=== PATIENT | male | born 1990 | race Caucasian/White ===

== ENCOUNTER 2020-02-22 15:24 | Emergency (ER) | payer OTHER, SELFPAY ==
[2020-02-22 15:50] VITALS: BP 145/75; PULSE 87; RESP 19; TEMP 36.6; O2SAT 99; BMI 32.5
--- NOTE | 2020-02-22 15:53 | XR_ITS ---
PROCEDURE: XR RIBS LT MIN 3V W CXR1V Referring Doctor: Sundar Wolf Patient Age:29Y CLINICAL INDICATION: PAIN Fell against car door hearing popping noise. Left the chest pain pain anterior chest below nipple COMPARISON: No exams were available for comparison FINDINGS: A frontal view of the chest shows lungs to be clear with no pneumothorax.. No active disease in the chest Multiple views of the left ribs ribs were obtained. No acute findings. No fracture. I would note that in this relatively younger patient the cartilage portion of rib begins at approximately the mid nipple line. The calcified left ends appear intact on today's views IMPRESSION: No acute findings. ; no rib fracture evident; Lungs clear no active disease Dictated by: David Braun MD 02/22/2020 16:52 David Braun MD in [place] 02/22/2020 16:52
--- NOTE | 2020-02-22 16:50 | HMH.EDUTC ---
[facility] [place]: Chest wall contusion Qualifiers: Encounter type: initial encounter Laterality: left Qualified Code(s): S20.212A - Contusion of left front wall of thorax, initial encounter Disposition: Home, Self-Care Condition on Discharge: Good Instructions: DI for Rib Contusion Additional Instructions: Rest and don't be doing any heavy lifting of straining for the next several day. Take ibuprofen for pain. I sent in a prescription to your pharmacy. Follow up with your primary care physician. If you continue to have worsening symptoms, you may need the x-ray to be repeated or a ct scan. Sometimes fractures show up better several days after they happen. GO TO THE ER FOR ANY WORSENING SYMPTOMS Prescriptions: Ibuprofen [Ibuprofen 800mg Tablet] 800 mg PO Q8HP PRN #30 tab PRN Reason: Moderate Pain Transmission Status: Received by [facility] Referrals: PCP,No [Primary Care Provider] - Forms: Work/School Release Time of Disposition: 16:54 Medical Decision Making - Medical Records Medical records reviewed: No: I reviewed the patient's medical records. - Rodrick Inquiry Pt receiving controlled substance: No Vital Signs: 02/22/20 15:50 02/22/20 16:59 Temperature 97.8 F 97.8 F Temperature Source Oral Pulse Rate 87 Pulse Rate [Right Brachial] 87 Respiratory Rate 19 19 Blood Pressure 145/75 H Blood Pressure [Right Arm] 145/75 H Blood Pressure Mean [Right Arm] 98 Blood Pressure Source [Right Arm] Automatic Cuff Blood Pressure Position [Right Arm] Sitting 02 Sat by Pulse Oximetry 99 Oxygen Delivery Method Room Air - Radiology Data #1 Image(s): Chest Image Reviewed: Yes I reviewed the patient's radiology image, Yes I have reviewed radiologist's interpretation Preliminary Findings: Normal/NAD PROCEDURE: XR RIBS LT MIN 3V W CXR1V Referring Doctor: Sundar Wolf Patient Age:29Y CLINICAL INDICATION: PAIN Fell against car door hearing popping noise. Left the chest pain pain anterior chest below nipple COMPARISON: No exams were available for comparison FINDINGS: A frontal view of the chest shows lungs to be clear with no pneumothorax.. No active disease in the chest Multiple views of the left ribs ribs were obtained. No acute findings. No fracture. I would note that in this relatively younger patient the cartilage portion of rib begins at approximately the mid nipple line. The calcified left ends appear intact on today's views IMPRESSION: No acute findings. ; no rib fracture evident; Lungs clear no active disease Dictated by: David Braun MD 02/22/2020 16:52 David Braun MD in [place] 02/22/2020 16:52 [facility] [place] - General Stated complaint: AO 02/17 @0430 fall rib pain Time Seen by Provider: 02/22/20 16:00 Mode of Arrival: Ambulatory Source of Information: Patient Limitations: No Limitations Description of Symptoms (Recalled from Triage Doc. by RN): PATIENT C/O LEFT RIB PAIN AFTER FALLING INTO A CAR FRIDAY MORNING HEENT Symptoms (Recalled from RN notes): No Resp Symptoms (Recalled from RN notes): No Skin Symptoms (Recalled from RN notes): No MS Symptoms (Recalled from RN notes): Yes Functional Status (Recalled from RN notes): WNL - History of Present Illness Provider Complaint: He states that he slipped on ice while he was opening his car door yesteday. When this happened he fell into the car. He hit the side of his car with the left side of his chest. Since then he has had left sided chest wall pain and tenderness. - Related Data Previous Rx's Medication Instructions Recorded Ibuprofen [Ibuprofen 800mg 800 mg PO Q8HP PRN #30 tab 02/22/20 Tablet] Allergies Allergy/AdvReac Type Severity Reaction Status Date / Time aloe vera Allergy Verified 02/22/20 16:10 cefaclor [From Ceclor] Allergy Verified 02/22/20 16:10 - Worker's Comp Is this a Worker's Comp case?: No [facility] Histor
[2020-02-22 16:59] VITALS: BP 145/75; PULSE 87; RESP 19; TEMP 36.6; O2SAT 99
== END 2020-02-22 17:06 | disposition home or self-care (01) ==
PROVIDERS: Emergency Provider Nurse Practitioner Family
DX: S20.212A Contusion of left front wall of thorax, initial encounter (principal); W00.0XXA Fall on same level due to ice and snow, initial encounter; Y92.89 Other specified places as the place of occurrence of the external cause
CPT/HCPCS: 71101; 99201

== ENCOUNTER → 2020-03-02 16:15 | Outpatient (CLI) | payer OTHER, SELFPAY ==
--- NOTE | 2020-03-02 16:20 | XR_ITS ---
PROCEDURE: XR SHOULDER LT MIN 2V CLINICAL INDICATION: PAIN IN LT SHOULDER COMPARISON: No exams were available for comparison FINDINGS: No fracture or dislocation. No lytic or blastic change. There is normal mineralization. The joint spaces are well-preserved. No significant degenerative/arthritic changes. No erosive changes evident. Other findings:None. IMPRESSION: Negative left shoulder Dictated by: Mitch Stewart MD 03/02/2020 16:49 Mitch Stewart MD in [place] 03/02/2020 16:49
== END ==
PROVIDERS: PCP Nurse Practitioner; Visit Provider Nurse Practitioner
DX: M25.512 Pain in left shoulder (principal)
CPT/HCPCS: 73030

== ENCOUNTER 2020-04-04 13:00 | Outpatient (RCR) | payer OTHER, SELFPAY | END 2020-04-20 08:29 | disposition home or self-care (01) | LOC: PT.CARL 13:00 | PROVIDERS: PCP Nurse Practitioner; Visit Provider Nurse Practitioner | DX: M25.512 Pain in left shoulder (principal) | CPT/HCPCS: 97010; 97014; 97110; 97163; G0283 ==

== ENCOUNTER → 2020-12-07 18:17 | Outpatient (CLI) | payer OTHER, SELFPAY ==
[2020-12-07 18:28] LABS: Basophils # 0.1 K/mm3 (0-0.2); Basophils % 1.6 % (0.1-2.0); Eosinophils # 0.1 K/mm3 (0.0-0.4); Eosinophils % 1.7 % (0.1-12.0); Hematocrit 42.1 % (42.0-52.0); Lymphocytes # 1.6 K/mm3 (0.7-4.5); Lymphocytes % 29.1 % (10-50); Mean Corpuscular HGB Conc 33.4 g/dL (31.8-35.4); Mean Corpuscular Hemoglobin 30.9 pg (27.0-31.2); Mean Corpuscular Volume 92.7 fl (80-94); Mean Platelet Volume 9.5 fl (7.4-10.4); Monocytes # 0.4 K/mm3 (0.1-1.0); Monocytes % 6.3 % (1.7-9.3); Neutrophils # 3.4 K/mm3 (1.8-7.8); Neutrophils % 61.4 % (37.0-80.0); Platelet Count 200 K/mm3 (142-424); Red Blood Count 4.54 M/mm3 (4.60-6.20); White Blood Count 5.6 K/mm3 (4.8-10.8)
[2020-12-07 19:03] LABS: Hemoglobin A1C 6.1 % (4.0-6.0)
[2020-12-07 19:41] LABS: Alanine Aminotransferase 57 U/L (12-78); Albumin Level 3.8 g/dl (3.5-5.0); Albumin/Globulin Ratio 1.4 (1.1-1.8); Alkaline Phosphatase 62 U/L (38-126); Anion Gap 9.4 mEq/L (5-15); Aspartate Amino Transferase 36 U/L (17-59); Bilirubin,Total 0.7 mg/dl (0.2-1.3); Blood Urea Nitrogen 15 mg/dl (9-20); Calcium 8.6 mg/dl (8.4-10.2); Carbon Dioxide 28 mmol/L (22.0-30.0); Chloride 108 mmol/L (98-107); Chol/HDL Ratio 3.8 (1-3.5); Cholesterol 150 mg/dl (140-200); Estimated Glomerular Filt Rate 160 ml/min (>60); GFR (African American) 194 ML/MIN (>60); Globulin 2.7 g/dL (1.3-3.2); Glucose 89 mg/dl (74-100); HDL Cholesterol 40 mg/dl (40-60); Potassium 4.4 mmoL/L (3.5-5.1); Sodium 141 mmol/L (136-145); Total Protein,Serum 6.5 g/dl (6.3-8.2); Triglycerides 97 mg/dl (30-150); VLDL Cholesterol 19 mg/dL (0-40)
[2020-12-07 19:52] LABS: Direct LDL Cholesterol 100.17 mg/dL (100-129)
== END ==
PROVIDERS: Visit Provider Internal Medicine Adolescent Medicine
DX: R03.0 Elevated blood-pressure reading, without diagnosis of hypertension (principal); E66.9 Obesity, unspecified; Z68.35 Body mass index [BMI] 35.0-35.9, adult
CPT/HCPCS: 80053; 80061; 83036; 85025

== ENCOUNTER 2021-02-13 15:57 | Emergency (ER) | payer OTHER, SELFPAY ==
[2021-02-13 16:10] VITALS: BP 141/78; PULSE 80; RESP 20; TEMP 36.8; O2SAT 98; BMI 35.9
--- NOTE | 2021-02-13 17:02 | HMH.EDUTC ---
[facility] [place]: Otitis media Qualifiers: Otitis media type: unspecified Laterality: right Qualified Code(s): H66.91 - Otitis media, unspecified, right ear Disposition: Home, Self-Care Condition on Discharge: Good Instructions: Middle Ear Infection, Methylprednisolone, Azithromycin Additional Instructions: *Monitor Temp, Over the counter Motrin or Tylenol as directed/as needed Tylenol every 4 hours and Motrin every 6 hours (as long as your family doctor has told you that you can take it) for fever or pain. and straight to ER if unable to lower temp less than 101.0 after medication given *Warm salt water gargles may help to soothe the throat *Throat Lozenges *Warm fluids like tea with honey may help to soothe the throat *Sleep elevated *Humidifier/Vaporizer Take medication as prescribed Return if needed Straight to ER Follow up IMMEDIATELY for new or worsening symptoms or no Noticeable improvement over the next 48-72 hours. 911 for difficulty breathing or swallowing Prescriptions: methylPREDNISolone [Medrol 4mg tab] 4 mg PO DIRECTED #21 tab Transmission Status: Pending to [email or web address] Azithromycin [Z-Efe 250mg Tab] 250 mg PO DIRECTED #6 tab Transmission Status: Pending to [email or web address] Referrals: Kobe Moore MD [Primary Care Provider] - As needed Time of Disposition: 17:13 Medical Decision Making - Rodrick Inquiry Pt receiving controlled substance: No Rodrick was queried for this patient: No Vital Signs: 02/13/21 16:10 02/13/21 17:09 Temperature 98.3 F 98.3 F Temperature Source Oral Pulse Rate 80 Pulse Rate [Right Brachial] 80 Respiratory Rate 20 20 Blood Pressure 141/78 H Blood Pressure [Right Arm] 141/78 H Blood Pressure Mean [Right Arm] 99 Blood Pressure Source [Right Arm] Automatic Cuff Blood Pressure Position [Right Arm] Sitting 02 Sat by Pulse Oximetry 98 Oxygen Delivery Method Room Air [facility] [place] - General Stated complaint: right ear pain Time Seen by Provider: 02/13/21 17:03 Mode of Arrival: Ambulatory Source of Information: Patient Limitations: No Limitations Description of Symptoms (Recalled from Triage Doc. by RN): PATIENT C/O RIGHT EAR PAIN X 2 DAYS HEENT Symptoms (Recalled from RN notes): Yes Resp Symptoms (Recalled from RN notes): No Skin Symptoms (Recalled from RN notes): No MS Symptoms (Recalled from RN notes): No Functional Status (Recalled from RN notes): WNL - History of Present Illness Provider Complaint: Patient states that he has been having pain in his right ear for about 2 days State that he had ear infection about 3mths ago and felt like it did now State that he feels like his ears are full and has pressure so he came in to get checked - Related Data Home Medications Medication Instructions Recorded Confirmed Levocetirizine Dihydrochloride 10 mg PO DAILY 02/13/21 02/13/21 Metformin HCl [Metformin HCl ER] 500 mg PO BID 02/13/21 02/13/21 Previous Rx's Medication Instructions Recorded Azithromycin [Z-Efe 250mg Tab] 250 mg PO DIRECTED #6 tab 02/13/21 methylPREDNISolone [Medrol 4mg 4 mg PO DIRECTED #21 tab 02/13/21 tab] Allergies Allergy/AdvReac Type Severity Reaction Status Date / Time aloe vera Allergy Verified 02/22/20 16:10 cefaclor [From Ceclor] Allergy Verified 02/22/20 16:10 - Worker's Comp Is this a Worker's Comp case?: No H History - Hepatitis A Screen Drug use history?: No High risk sexual behaviors?: No History of sexually transmitted infection?: No Currently employed?: No Childcare worker?: No Do you have indoor plumbing?: Yes Do you have electricity?: Yes Attestation statement:: This patient has been screened for Hepatitis A risk factors. Medical History: Reports:: Diabetes Mellitus Type 2 Laterality Cases: Bilateral: Tonsillectomy - Social History Smoking Status: Current every day smoker Tobacco Type: cigarettes # Packs/Day (cigarettes):
[2021-02-13 17:09] VITALS: BP 141/78; PULSE 80; RESP 20; TEMP 36.8; O2SAT 98
== END 2021-02-13 17:20 | disposition home or self-care (01) ==
PROVIDERS: Emergency Provider Nurse Practitioner; PCP Internal Medicine Adolescent Medicine
DX: H66.91 Otitis media, unspecified, right ear (principal); E11.9 Type 2 diabetes mellitus without complications; Z79.84 Long term (current) use of oral hypoglycemic drugs
CPT/HCPCS: 99202; G0463

== ENCOUNTER → 2021-03-08 10:06 | Outpatient (CLI) | payer OTHER, SELFPAY ==
[2021-03-08 11:13] LABS: Hemoglobin A1C 4.4 % (4.0-6.0)
== END ==
PROVIDERS: PCP Internal Medicine Adolescent Medicine; Visit Provider Internal Medicine Adolescent Medicine
DX: R73.03 Prediabetes (principal)
CPT/HCPCS: 36415; 83036

== ENCOUNTER 2021-04-15 14:51 | Emergency (ER) | payer OTHER, SELFPAY ==
[2021-04-15 15:02] VITALS: BP 121/89; PULSE 90; RESP 16; TEMP 36.8; O2SAT 99; BMI 35.7
--- NOTE | 2021-04-15 15:07 | HMH.EDUTC ---
[facility] [place]: Sinusitis Qualifiers: Sinusitis location: unspecified location Chronicity: unspecified Qualified Code(s): J32.9 - Chronic sinusitis, unspecified Disposition: Home, Self-Care Condition on Discharge: Good Instructions: Sinusitis, DI for Sinusitis Additional Instructions: *Monitor Temp, Over the counter Motrin or Tylenol as directed/as needed Tylenol every 4 hours and Motrin every 6 hours (as long as your family doctor has told you that you can take it) for fever or pain. and straight to ER if unable to lower temp less than 101.0 after medication given *Warm salt water gargles may help to soothe the throat *Throat Lozenges *Warm fluids like tea with honey may help to soothe the throat *Sleep elevated *Humidifier/Vaporizer Take medication as prescribed Return if needed Follow up IMMEDIATELY for new or worsening symptoms or no Noticeable improvement over the next 48-72 hours. 911 for difficulty breathing or swallowing Prescriptions: predniSONE [Deltasone 10mg tablet] 10 mg PO BID 5 Days #10 tab Transmission Status: Pending to [facility] #[id number] Doxycycline Monohydrate [Doxycycline Harvey 100mg Tab] 100 mg PO BID 10 Days #20 tab Transmission Status: Pending to [facility] #[id number] Referrals: Sundar Azul MD [Primary Care Provider] - As needed Time of Disposition: 15:19 Medical Decision Making - Rodrick Inquiry Pt receiving controlled substance: No Rodrick was queried for this patient: No Vital Signs: 04/15/21 15:02 Temperature 98.2 F Temperature Source Oral Pulse Rate [Right Brachial] 90 Respiratory Rate 16 Blood Pressure [Right Arm] 121/89 Blood Pressure Mean [Right Arm] 99 Blood Pressure Source [Right Arm] Automatic Cuff Blood Pressure Position [Right Arm] Sitting 02 Sat by Pulse Oximetry 99 [facility] [place] - General Stated complaint: possible sinus infection Time Seen by Provider: 04/15/21 15:07 Description of Symptoms (Recalled from Triage Doc. by RN): PT STATES HE THINKS HE HAS A SINUS INFECTION. SAYS HE HAS ALOT OF SINUS PRESSURE UNDER AND BEHIND HIS EYE ALONG WITH BLOWING OUT DARK GREEN MUCOUS WHEN HE BLOWS HIS NOSE. HEENT Symptoms (Recalled from RN notes): Yes Resp Symptoms (Recalled from RN notes): No Skin Symptoms (Recalled from RN notes): No MS Symptoms (Recalled from RN notes): No Functional Status (Recalled from RN notes): WNL - History of Present Illness Provider Complaint: Patient states that he thinks he may have a sinus infection States that for about a week he has been having sinus pain and pressure behind his eyes States that he gets sinus infections often and felt it coming on last week and has continued to get worse - Related Data Home Medications Medication Instructions Recorded Confirmed Levocetirizine Dihydrochloride 10 mg PO DAILY 02/13/21 02/13/21 Metformin HCl [Metformin HCl ER] 500 mg PO BID 02/13/21 02/13/21 Previous Rx's Medication Instructions Recorded Azithromycin [Z-Efe 250mg Tab] 250 mg PO DIRECTED #6 tab 02/13/21 methylPREDNISolone [Medrol 4mg 4 mg PO DIRECTED #21 tab 02/13/21 tab] Doxycycline Monohydrate 100 mg PO BID 10 Days #20 tab 04/15/21 [Doxycycline Harvey 100mg Tab] predniSONE [Deltasone 10mg tablet] 10 mg PO BID 5 Days #10 tab 04/15/21 Allergies Allergy/AdvReac Type Severity Reaction Status Date / Time aloe vera Allergy Verified 02/22/20 16:10 cefaclor [From Ceclor] Allergy Verified 02/22/20 16:10 - Worker's Comp Is this a Worker's Comp case?: No [facility] History - Hepatitis A Screen Drug use history?: No High risk sexual behaviors?: No History of sexually transmitted infection?: No Currently employed?: No Childcare worker?: No Do you have indoor plumbing?: Yes Do you have electricity?: Yes Attestation statement:: This patient has been screened for Hepatitis A risk factors. I have reviewed the patient's past medical history: Yes Medical History: Jahaira
[2021-04-15 15:24] VITALS: BP 129/89; PULSE 87; RESP 19; TEMP 36.7; O2SAT 98
== END 2021-04-15 15:24 | disposition home or self-care (01) ==
PROVIDERS: Emergency Provider Nurse Practitioner; PCP Internal Medicine Adolescent Medicine
DX: J32.9 Chronic sinusitis, unspecified (principal); F17.290 Nicotine dependence, other tobacco product, uncomplicated
CPT/HCPCS: 99202; G0463

== ENCOUNTER 2021-08-09 14:20 | Emergency (ER) | payer OTHER, SELFPAY ==
[2021-08-09 14:20] VITALS: BP 141/83; PULSE 86; RESP 18; TEMP 36.8; O2SAT 98; BMI 34.0
[2021-08-09 14:30] VITALS: BP 141/83; PULSE 86; RESP 18; TEMP 36.8; O2SAT 98
--- NOTE | 2021-08-09 14:39 | HMH.EDUTC ---
[facility] [place] Clinical Impression: Dental abscess Disposition: Home, Self-Care Condition on Discharge: Good Instructions: Tooth Abscess Additional Instructions: follow up with Dr Gonzalez today at 4 pm as scheduled. if worsen return or be seen in ed Prescriptions: Amoxicillin [Amoxicillin 500mg Tab] 500 mg PO BID 10 Days #20 tab Prescription Printed Referrals: Sundar Azul MD [Primary Care Provider] - Time of Disposition: 14:46 Medical Decision Making - Rodrick Inquiry Pt receiving controlled substance: No Vital Signs: 08/09/21 14:20 08/09/21 14:30 Temperature 98.2 F 98.2 F Temperature Source Oral Pulse Rate 86 Pulse Rate [Right Brachial] 86 Respiratory Rate 18 18 Blood Pressure 141/83 H Blood Pressure [Right Arm] 141/83 H Blood Pressure Mean [Right Arm] 102 Blood Pressure Source [Right Arm] Automatic Cuff Blood Pressure Position [Right Arm] Sitting 02 Sat by Pulse Oximetry 98 Oxygen Delivery Method Room Air Orders (Tests/Meds): ED MEDICATIONS Discontinued Medications Generic Name Dose Route Start Last Admin Trade Name Freq PRN Reason Stop Dose Admin Benzocaine/Butamben/Tetracaine HCl 1 gm 08/09/21 14:31 08/09/21 14:34 Tetracaine/Benzocaine/Butamben 56 Gm Voss TP 08/09/21 14:32 1 gm ONCE ONE Administration Lidocaine HCl 15 ml 08/09/21 14:31 08/09/21 14:34 Lidocaine 2% Viscous Deena 15ml Udc PO 08/09/21 14:32 15 ml ONCE ONE Administration [facility] [place] HPI - General Chief complaint: Urgent Treatment Center Stated complaint: oral pain Time Seen by Provider: 08/09/21 14:39 Mode of Arrival: Ambulatory Source of Information: Patient Limitations: No Limitations Description of Symptoms (Recalled from Triage Doc. by RN): PATIENT C/O PAIN TO RIGHT TOP TOOTH WITH FACIAL SWELLING HEENT Symptoms (Recalled from RN notes): Yes Resp Symptoms (Recalled from RN notes): No Skin Symptoms (Recalled from RN notes): No MS Symptoms (Recalled from RN notes): No Functional Status (Recalled from RN notes): WNL - History of Present Illness Provider Complaint: 30 yr old male presents for facial swelling and dental pain. pt states his back tooth has broken off and its been awhile since seeing a dentist. pt states swelling started this am. pt states he called his dentist and they can not see him until the end of august - Related Data Home Medications Medication Instructions Recorded Confirmed Levocetirizine Dihydrochloride 10 mg PO DAILY 02/13/21 02/13/21 Metformin HCl [Metformin HCl ER] 500 mg PO BID 02/13/21 02/13/21 Previous Rx's Medication Instructions Recorded Azithromycin [Z-Eef 250mg Tab] 250 mg PO DIRECTED #6 tab 02/13/21 methylPREDNISolone [Medrol 4mg 4 mg PO DIRECTED #21 tab 02/13/21 tab] Doxycycline Monohydrate 100 mg PO BID 10 Days #20 tab 04/15/21 [Doxycycline [place] 100mg Tab] predniSONE [Deltasone 10mg tablet] 10 mg PO BID 5 Days #10 tab 04/15/21 Amoxicillin [Amoxicillin 500mg Tab] 500 mg PO BID 10 Days #20 tab 08/09/21 Allergies Allergy/AdvReac Type Severity Reaction Status Date / Time aloe vera Allergy Verified 02/22/20 16:10 cefaclor [From Ceclor] Allergy Verified 02/22/20 16:10 - Worker's Comp Is this a Worker's Comp case?: No [facility] History - Hepatitis A Screen Attestation statement:: This patient has been screened for Hepatitis A risk factors. I have reviewed the patient's past medical history: Yes Medical History: Reports:: Diabetes Mellitus Type 2 Laterality Cases: Bilateral: Tonsillectomy - Social History Smoking Status: Never smoker Tobacco Type: cigarettes # Packs/Day (cigarettes): 1 Alcohol Intake: never Occupational Status: employed Household Members: family ROS Obtained: Yes Systems reviewed as appropriate & no additional complaints - Constitutional Constitutional: Reports system reviewed and no additional complaints, except as docu, Denies fatigue - Eyes Eyes: Reports system reviewed a
== END 2021-08-09 14:44 | disposition home or self-care (01) ==
PROVIDERS: Emergency Provider Nurse Practitioner Family; PCP Internal Medicine Adolescent Medicine
DX: K04.7 Periapical abscess without sinus (principal); E11.9 Type 2 diabetes mellitus without complications; Z79.51 Long term (current) use of inhaled steroids; Z79.84 Long term (current) use of oral hypoglycemic drugs; Z88.0 Allergy status to penicillin; Z91.048 Other nonmedicinal substance allergy status
CPT/HCPCS: 99213; G0463